=== PATIENT | female | born 1955 | race African-American/Black ===

== ENCOUNTER 2017-02-16 16:06 | Emergency (ER) | payer SELFPAY ==
[2017-02-16 16:08] VITALS: BP 145/63; PULSE 91; RESP 16; TEMP 98; O2SAT 98
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
[2017-02-16] MEDS ORDERED: MORP1TAB26 PO (20:05)
[2017-02-16] MEDS ORDERED: MORP1TAB25 PO (20:05)
[2017-02-16] MEDS ORDERED: GLYB2.5T3 PO (20:05)
[2017-02-16] MEDS ORDERED: METF500T PO (20:05)
[2017-02-16] MEDS ORDERED: CYCL10TA PO (20:22)
== END 2017-02-16 19:33 | disposition left against medical advice (07) ==
LOC: NED 16:06
DX: M54.2 Cervicalgia (principal); M54.9 Dorsalgia, unspecified; M79.1 Myalgia; R52 Pain, unspecified; Z79.899 Other long term (current) drug therapy; V03.00XA Pedestrian on foot injured in collision with car, pick-up truck or van in nontraffic accident, initial encounter; Y92.481 Parking lot as the place of occurrence of the external cause
CPT/HCPCS: 99281

== ENCOUNTER 2017-02-16 19:44 | Emergency (ER) | payer OTHER ==
[~2017-02-16] VITALS: Ht 170.2 cm; Wt 90.0 kg
[2017-02-16 19:51] VITALS: BP 156/74; PULSE 90; RESP 18; TEMP 98.5; O2SAT 94
[2017-02-16] MEDS ORDERED: GLYB2.5T3 PO (20:05)
[2017-02-16] MEDS ORDERED: MORP1TAB26 PO (20:05)
[2017-02-16] MEDS ORDERED: MORP1TAB25 PO (20:05)
[2017-02-16] MEDS ORDERED: METF500T PO (20:05)
[2017-02-16] MEDS ORDERED: CYCL10TA PO (20:22)
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
[2017-02-16] MEDS ORDERED: KETOROLAC TROMETHAMINE 60 MG/2 ML (IM) VIAL IM ONE (20:30)
== END 2017-02-16 20:41 | disposition home or self-care (01) ==
LOC: PHEFT 19:44
DX: S29.012A Strain of muscle and tendon of back wall of thorax, initial encounter (principal); V49.40XA Driver injured in collision with unspecified motor vehicles in traffic accident, initial encounter; E11.9 Type 2 diabetes mellitus without complications; E78.00 Pure hypercholesterolemia, unspecified; I10 Essential (primary) hypertension
CPT/HCPCS: 96372; 99284; J1885